=== PATIENT | male | born 1950 | race Caucasian/White ===

== ENCOUNTER 2017-02-25 00:16 | Emergency (ER) | payer SELFPAY ==
[~2017-02-25] VITALS: Ht 177.8 cm; Wt 80.6 kg
[~2017-02-25 00:16] MED LIST: ADVAIR 500/501 DISK IH; ALLEGRA60 MG PO; Astelin, Astepro 0.1 BOTH NARES; COMBIVENT200 INHALA IH; Claritin,Alavart PO; DELTASONE10 MG PO; DUONEB 2.5-0.5 M3 ML IH; FLOVENT DISKUS1 DIS1 IH; FLOVENT DISKUS1 DIS2 IH; HYDROCHLOROTHIA25 MG; MAXAIR AUTOHALE14 GM IH; MONTELUKAST SOD10 MG PO; PREDNISONE10 MG PO; PROAIR HFA8.5 GM IH; PULMICORT180 MICROG IH; SYMBICORT60 INHALA1 IH; Sterapred 5 mg Uni-P PO; TRIAMTERENE-HC1 EACH PO; ZITHROMAX250 MG PO
[2017-02-25 02:14] LABS: EOSINOPHIL COUNT 0.1 K/uL (0-0.3); HEMATOCRIT 39.1 % (38.0-50.0); IMMATURE GRANULOCYTE (%) 0.6 % (0.0-0.7); IMMATURE GRANULOCYTE COUNT 0.1 K/uL; INSTRUMENT ABS NEUTROPHIL CT 8.5 K/uL; LYMPHOCYTE COUNT 0.9 K/uL (1.0-2.8); MCH 30.3 PG (29.0-34.0); MCHC 32.7 G/DL (30.0-36.0); MCV 92.7 FL (86-99); MONOCYTE (%) 7.4 % (3-12); MONOCYTE COUNT 0.8 K/uL (0-0.8); NEUTROPHIL (%) 82.1 % (45-76); NEUTROPHIL COUNT 8.5 K/uL (1.8-6.4); PLATELET COUNT 169 K/uL (156-360); RBC DIS.WIDTH-SD 44.3 % (39-53); RED BLOOD COUNT 4.22 M/uL (4.00-5.50); WHITE BLOOD COUNT 10.3 K/uL (4.1-10.2)
[2017-02-25 02:26] LABS: CHLORIDE 105 mEq/L (99-109); POTASSIUM 3.4 mEq/L (3.7-5.4); SODIUM 140 mEq/L (136-147)
[2017-02-25 02:28] LABS: GLUCOSE 158 mg/dL (70-99)
[2017-02-25 02:30] LABS: ANION GAP 11 MEQ/L (2-14)
[2017-02-25 02:32] LABS: GFR ESTIMATE (CALCULATED) > 59 mL/min/
[2017-02-25 02:33] LABS: UREA NITROGEN (BUN) 22 mg/dL (9-23)
[2017-02-25 02:34] LABS: URIC ACID 3.5 mg/dL (3.1-9.2)
[2017-02-25 03:06] LABS: INFLUENZA A VIRAL ANTIGEN NEGATIVE; INFLUENZA B VIRAL ANTIGEN NEGATIVE
[2017-02-25 03:09] LABS: ERTH.SED.RATE 12 MM/HR (0-20)
[2017-02-25 03:24] LABS: C-REACTIVE PROTEIN 54.4 MG/L (0-10)
[2017-02-25] MEDS ORDERED: NAPROSYN500 MG PO (03:24)
[2017-02-25] MEDS ORDERED: KEFLEX500 MG PO (03:24)
[2017-02-25] MEDS ORDERED: NORCO 5/3251 TABLET PO (03:26)
[2017-02-25 03:48] VITALS: BP 135/86
== END 2017-02-25 03:49 | disposition home or self-care (01) ==
LOC: EME 00:16
PROVIDERS: Emergency Medicine; Physician Assistant Medical
DX: M13.0 Polyarthritis, unspecified (principal); I10 Essential (primary) hypertension; E11.9 Type 2 diabetes mellitus without complications; J45.909 Unspecified asthma, uncomplicated; Z79.52 Long term (current) use of systemic steroids; M79.601 Pain in right arm; M25.511 Pain in right shoulder
CPT/HCPCS: 71010; 72125; 73030; 80048; 83605; 84550; 85025; 85651; 86140; 87040; 87502; 99281; 99285

== ENCOUNTER → 2018-06-15 | Outpatient (CLI) | payer SELFPAY ==
[~2018-06-15] MED LIST changes: +KEFLEX500 MG PO; +NAPROSYN500 MG PO; +NORCO 5/3251 TABLET PO
== END | disposition home or self-care (01) ==
LOC: NUC 09:59
DX: M19.012 Primary osteoarthritis, left shoulder (principal); M19.011 Primary osteoarthritis, right shoulder; M17.12 Unilateral primary osteoarthritis, left knee; M19.072 Primary osteoarthritis, left ankle and foot; M19.071 Primary osteoarthritis, right ankle and foot
CPT/HCPCS: 78306; A9503